=== PATIENT | male | born 2000 | race African-American/Black ===

== ENCOUNTER 2024-01-23 15:44 | Outpatient (CLI) | payer OTHER, SELFPAY ==
[2024-01-23 16:08] LABS: #Basophils 0.03 10x3/uL (0.0-0.2); #Eosinphils 0.03 10x3/uL (0.0-0.5); #Monocytes 0.48 10x3/uL (0.0-1.1); #Neutrophils 3.01 10x3/uL (1.5-8.4); %Basophils 0.6 % (0.0-2.0); %Eosinophils 0.6 % (0.0-6.0); %Lymphocytes 29.7 % (18.0-47.0); %Monocytes 9.4 % (0.0-10.0); %Neutrophils 59.3 % (40.0-75.0); Hematocrit 41.9 % (38.8-50.0); Mean Corpuscular HGB CONC 33.4 g/dL (32.0-36.0); Mean Corpuscular Hemoglobin 27.2 pg (27.0-33.0); Mean Corpuscular Volume 81.5 fL (81.2-95.1); Mean Platelet Volume 8.5 fL (7.4-10.4); Platelet Count 248 10x3/uL (150-450); RBC Distribution Width 12.9 % (11.5-14.5); Red Blood Cell (RBC) Count 5.14 10x6/uL (4.32-5.72); White Blood Cell (WBC) Count 5.1 10x3/uL (3.5-10.5)
== END 2024-01-23 15:45 | disposition home or self-care (01) ==
LOC: LABBT 15:44
PROVIDERS: ATTEND Surgery
DX: Z01.812 Encounter for preprocedural laboratory examination (principal); K64.5 Perianal venous thrombosis
CPT/HCPCS: 85025

== ENCOUNTER 2024-01-24 06:43 | Day surgery (SDC) | payer OTHER ==
[2024-01-23 15:49] VITALS: BMI 28.7
[2024-01-24] MEDS ORDERED: PROPOFOL 40 ML ONE (08:41)
[2024-01-24] MEDS ORDERED: Dexamethasone 4 mg/ml Vial ONE (08:50)
[2024-01-24] MEDS ORDERED: Lidocaine 2% PF 5 ML VIAL ONE (08:50)
[2024-01-24] MEDS ORDERED: Sodium Chloride 0.9% 100 ML ONE ×2 (08:50→09:16)
[2024-01-24] MEDS ORDERED: Ondansetron PF 4 MG/2 ML Vial ONE (08:50)
[2024-01-24] MEDS ORDERED: Dexmedetomidine 200 MCG/2 ML VIAL ONE (08:50)
[2024-01-24] MEDS ORDERED: EPINEPHrine 1 MG/ML VIAL ONE (08:56)
[2024-01-24] MEDS ORDERED: Bupivacaine 0.25% HCL 30 ML VIAL ONE (08:57)
[2024-01-24] MEDS ORDERED: Bacitracin Zinc Ointment 30 gm TUBE ONE (08:57)
[2024-01-24] MEDS ORDERED: fentaNYL PF 100 MCG/2 ML SYRINGE ONE ×2 (09:08→10:26)
[2024-01-24] MEDS ORDERED: cefOXitin 2 GM VIAL ONE (09:14)
[2024-01-24] MEDS ORDERED: Sodium Chloride 0.9% 0 ML ONE (09:14)
[2024-01-24] MEDS ORDERED: CEFAZOLIN 2 GM VIAL ONE (09:16)
== END 2024-01-24 11:42 | disposition home or self-care (01) ==
LOC: SDC 06:43
PROVIDERS: ATTEND Surgery
PROC: 06BY3ZC Excision of Hemorrhoidal Plexus, Percutaneous Approach (ICD-10-PCS; principal; 2024-01-24)
DX: K64.5 Perianal venous thrombosis (principal)
CPT/HCPCS: 88304; J0171; J0665; J0694; J1100; J2001; J2405; J2704; J3490